=== PATIENT | female | born 1995 | race Caucasian/White ===

== ENCOUNTER 2021-08-08 19:19 | Emergency (ER) | payer OTHER ==
[~2021-08-08] VITALS: Ht 160 cm; Wt 74.8 kg
[2021-08-08 19:48] VITALS: BP 122/45
[2021-08-08] MEDS ORDERED: IBUP-1955 PO (21:50)
--- NOTE | 2021-08-08 21:57 | NUR ---
Patient discharged to home in stable condition. Written and verbal after care instructions given. Patient verbalizes understanding of instruction. Pt ambulatory with a steady gait
== END 2021-08-08 21:58 | disposition home or self-care (01) ==
LOC: ER 19:24
DX: M25.561 Pain in right knee (principal)
CPT/HCPCS: 73564-TC; 73590-TC